=== PATIENT | female | born 1945 | race Caucasian/White ===

== ENCOUNTER 2024-07-08 11:31 | Outpatient (AMB) | payer MEDICARE, SELFPAY ==
[2024-07-08 11:32] VITALS: BP 108/68; BMI 23.7
--- NOTE | 2024-07-08 11:32 | A.OFFVIS_ITS ---
Vital Signs 07/08/24 11:32 Height 5 ft Weight 121 lb 4 oz BMI 23.7 BP 108/68 Blood Pressure Location Rt brachial Position Sitting Intake Visit Reasons: [employer]ULATION: Parkinson's 2nd opinion (06/23 LV) Intake Note: Patient presents for parkinsons 2nd opinion Allergies No Known Allergies Allergy (Verified 07/08/24 11:34) Medication List - Last Reconciled 07/08/24 by Tuyet Natarajan MD amlodipine 5 mg PO DAILY carbidopa-levodopa 25-100 mg 1 tab PO TID HPI Comments Details: 78y/o right handed female comes for second opinion regrading Parkinsons disease. She sees Wanda THOMSON at [facility] neurology/ she started with right leg stiffness few years ago and over 1 year ago she noticed intermittent right leg tremors. In the past few months she noticed her right hand dexterity was affected and had difficulty writing and was posturing. she was seen at [facility]rology few months ago and diagnosed with possible Parkinsons disease. she was unable to do STEPHANIE scan so was started on medications.she is on carbidopa/levodopa 25/100 tid . she noticed improvement with medications. Memory- occasional difficulty sleep- normal, vivid dreams when she took last dose of sinemet late at night Mood- ok Motivated - fatigued ( throat and tongue cancer in 2023 )she has loss of appetite Speech- softer Drooling-none Handwriting- hand exercises helped Showering, dressing- OK Good with turning in bed Gait- shuffles with right leg Bowel movements- constipation - smooth move tea or senna she has nausea since her chemo No double vision [facility] Medical History (Updated 07/08/24 @ 12:33 by Tuyet Natarajan MD) Parkinson's disease without dyskinesia or fluctuating manifestations Kyphosis Parkinson disease Pacemaker Squamous cell cancer of tongue Tremor of right hand Neuroforaminal stenosis of cervical spine Mild aortic stenosis HTN (hypertension) Hyperlipidemia Cervical cancer Human papilloma virus Surgical History History of Sarah fundoplication Family History Father Alcoholism CAD (coronary artery disease) Sister HTN (hypertension) Sister Hyperlipidemia Social History Patient Tobacco Use Status: Never used Tobacco Physical Exam Vital Signs: Last Vital Signs BP 108/68 07/08/24 11:32 BMI result Body Mass Index 23.7 Const General: cooperative, healthy appearing, comfortable and no acute distress Nutritional Appearance: average body habitus Orientation/consciousness: patient oriented x3 Neck Neck: Yes no meningeal signs Neuro Other: Right UE 2 + cog wheel rigidity Right LE rest tremors FFM - decreased R>L Foot taps - R>L Gait- stooped , decreased arm swing right UE, small steps General: patient oriented x3, moves all extremities, no meningeal signs and no focal motor deficits Cranial nerves: Yes Facial sensation intact/muscles of mastication intact, Yes Bilaterally intact EOM present, Yes Nystagmus not present, Yes Normal facial strength present and Yes Midline tongue present Cognition (Neuro): normal cognition Motor exam (neuro): 5/5 motor strength present throughout Deep tendon reflexes (DTR's): Right triceps reflex intensity grade: 1+, Left triceps reflex intensity grade: 1+, Rt Biceps (C5, C6): 1+, Left biceps reflex intensity grade: 1+, Right brachioradialis reflex intensity grade: 1+, Left brachioradialis reflex intensity grade: 1+, Right patellar reflex intensity grade: 1+ and Left patellar reflex intensity grade: 1+ Coordination: [id number] test normal Assessment & Plan Assessment & Plan (1) Parkinson's disease without dyskinesia or fluctuating manifestations: Code(s): G20.A1 - Parkinson's disease without dyskinesia, without mention of fluctuations Category: Medical Plan Sinemet 25/100 tid . discussed side effects Continue exercises at the [facility] . Increase protien intake. Info on APDA given Coding Level of Care Code New Pt Level 4 (34498) Complex EM visit Add On G2211 Diagnoses Parkinson's disease without dyskinesia or fluctuating manifestations G20.A1
--- OUTSIDE RECORDS SUMMARY | 2024-07-08 13:18 | XMS_ITS | Continuity of Care Document ---
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(Discharge Diagnosis) - 03/18/24 Adverse effect of carboplatin(Discharge Diagnosis) - 03/18/24 HPV (human papilloma virus) infection(Discharge Diagnosis) - 03/18/24 Discharge Disposition: A-D/C Home Attending Physician: Shanti PHOENIX, Jonathon Admitting Physician: Ignacia Land MD Referring Physician: Eugenio Wilson MD Encounter Type: Disch Recurring OP Allergies, Adverse Reactions, Alerts No Known Medication Allergies Immunizations Given and Recorded Vaccine Date Status Refusal Reason SARS-CoV-2(COVID-19)mRNA-LNP vac([id number]) 05/26/24 Recorded influenza virus vaccine, inactivated 04/08/24 Aron rded influenza virus vaccine, inactivated 04/06/23 Give n influenza virus vaccine, inactivated 04/29/22 Aron rded pneumococcal 20-valent conjugate vaccine 04/06/23 Given SARS-CoV-2 (COVID-19) mRNA-1273 vaccine 1 04/01/22 Recorded SARS-CoV-2 (COVID-19) mRNA-1273 vaccine 04/29/21 R ecorded SARS-CoV-2 (COVID-19) mRNA-1273 vaccine 11/21/20 R ecorded SARS-CoV-2 (COVID-19) mRNA-1273 vaccine 10/04/20 R ecorded SARS-CoV-2 (COVID-19) mRNA-1273 vaccine 09/24/20 G iven SARS-CoV-2 (COVID-19) mRNA-1273 vaccine 08/27/20 G iven pneumococcal 23-valent vaccine 2 07/14/17 Given pneumococcal 13-valent vaccine 05/06/16 Given 1Result Comment: bivalent booster left arm lot [id number] exp 12-01-2022 [facility] 2Result Comment: [07/14/2017] [id number] Medications amLODIPine 5 mg oral tablet 1 tablet, By Mouth, Daily, # 90 tablet, 0 Refills, Maintenance, 06/10/24 2:45:00 PM EST, [id number], 154.5, cm, 05/12/24 9:01:00 EST, Height, 57, kg, 05/12/24 9:01:00 EST, Dry Weight Start Date: 06/10/24 Status: Ordered Quantity: 90.0 Unit: tablet Repeat number: 1 carbidopa-levodopa 25 mg-100 mg oral tablet See Instructions, TAKE 0.5 (HALF) TABLET 3 TIMES A DAY BEFORE MEALS FOR 1 WEEK THEN INCREASE TO 1 FULL TAB, # 270 tablet, 0 Refills, Maintenance, 06/22/24 9:04:00 AM EST, [id number], 90, TAKE 0.5 (HALF) TABLET 3 TIMES A DAY BEFORE MEALS FOR 1 WEEK THEN INCREASE TO 1 FULL TAB, 154.5, cm, 06/14/24 10:54:00 EST, Height, 57, kg, 05/12/24 9:01:00 EST, Dry Weight Start Date: 06/22/24 Status: Ordered Quantity: 270.0 Unit: tablet Repeat number: 1 Nutritional Supplements Maintenance, 06/11/23 10:39:00 AM EST, Supply Start Date: 06/11/23 Status: Ordered Repeat number: 1 omeprazole 20 mg oral enteric coated capsule 1 capsule, By Mouth, Daily, # 90 capsule, 1 Refills, Maintenance, 12/14/23 7:59:00 AM EDT, [id number], 154.5, cm, 12/14/23 7:48:00 EDT, Height, 61.7, kg, 11/25/23 10:00:00 EDT, Dry Weight Start Date: 12/14/23 Stop Date: 12/14/23 Status: Ordered Quantity: 90.0 Unit: capsule Repeat number: 1 polyethylene glycol 3350 oral powder for reconstitution = 17 Gm, By Mouth, Daily, PRN Constipation, dissolve in water or juice before taking, # 527 Gm, 2 Refills, Maintenance, 08/27/23 1:24:00 PM EST, REC Powder, [id number], Partial fill upon patient request if the prescription is for a schedule II opioid drug., 17 Gm By Mouth Daily,PRN:Constipati on,Instr:dissolve in water or juice before taking, 154.5, cm, 08/26/23 8:24:00 EST, Height, 68, kg,08/26/23 8:24:00 EST, Dry Weight Start Date: 08/27/23 Status: Ordered Quantity: 527.0 Unit: g Repeat number: 3 Problem List Condition Confirmation Course Effective Dates Status H ealth Status Informant Adverse effect of carboplatin Confirmed Active Pacemaker - AV sequential paced 1 Confirmed Active History of G tube - removed 11/2023 Confirmed Active HPV (human papilloma virus) infection Confirmed Active Hyperlipidemia ASCVD 21% Confirmed Active Hypertension Confirmed Active Kyphosis Confirmed Active Mild aortic stenosis Confirmed Active Parkinsons disease Confirmed Active Cervical spinal stenosis Confirmed Active Squamous cell cancer of tongue 2, 3 Confirmed Active 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 Discharge Diagnosis 03/18/24 Non-Specified Adverse effect of carboplatin Discharge Diagnosis 03/18/24 HPV (human papilloma virus) infection Discharge Diagnosis 03/18/24 06:21 am Paolo Jiménez MD, Massiel Morfin Referred to neurosurgery Vital Signs Most recent to oldest [Reference Range]: 1 2 3 Height 154.5 cm (05/12/24: AM) 154.5 cm (04/22/24 AM) 154.5 cm (04/20/24: AM) Weight 57.0 kg (05/12/24: AM) 57.2 kg (04/22/24 AM) 59.2 kg (04/20/24 AM) Oxygen Saturation [94-100 %] 98 % (05/12/24: AM) 99 % (04/22/24 AM) 99 % (04/20/24: AM) Pulse Rate [55-90 bpm] 103 bpm *H* (05/12/24: AM) 94 bpm *H* (04/22/24 AM) 79 bpm (04/20/24: AM) Body Mass Index [18.5-24.99 kg/m2] 23.88 kg/m2 (05/12/24: AM) 23.96 kg/m2 (04/22/24 AM) 24.8 kg/m2 (04/20/24: AM) Blood Pressure [90-138/55-84 mm Hg] 116/62mm Hg (05/12/24: AM) 123/67mm Hg (04/22/24: AM) 127/65mm Hg (04/20/24:23 AM) Respiratory Rate [16-30 br/min] 16 br/min (08/31/23 8:58 AM) 18 br/min (08/24/23 8:45 AM) Temperature [96.8-100.4 DegF] 98.6 DegF (05/12/24: AM) 97.6 DegF (04/22/24 AM) 97.9 DegF (04/20/24: AM) Mode of Delivery (Oxygen) Room air (05/12/24 9:01 AM) Room air (04/22/24: AM) Room air (04/20/24:23 AM) Blood pressure sites Arm, right (11/7/24 9:01 AM) Arm, right (04/22/24 9:26 AM) Arm, right (04/20/24 10:23 AM) Temperature Route Oral (05/12/24 9:01 AM) Temporal (04/22/24 9:26 AM) Oral (04/20/24 10:23 AM) Dry Weight 57.0 kg (05/12/24 9:01 AM) 57.2 kg (04/22/24 9:26 AM) 59.2 kg (04/20/24 10:23 AM) Weight Obtained Via Standing scale (05/12/24 9:01 AM) Standing scale (04/22/24 9:26 AM) Standing scale (04/20/24 10:23 AM) Dry Weight Obtained Via Standing scale (05/12/24 9:01 AM) Standing scale (04/22/24 9:26 AM) Standing scale (04/20/24 10:23 AM) Social History Social History Type Response Smoking Status Never smoker entered on: 07/14/17 Sex Sex Representation Female (finding) Laboratory * Event Display: Non BH Lab Results Authored Date: [id number] Note * Franklin Sellers: PERFORM, SIGN, VERIFY Event Display: Patient Education/Instruction Authored Date: [id number] [facility] *Heme/Onc Adult Clinical Summary Name AMELIA AHN Age 78 Years 1945 PCP Sushil JOHNSON, Paula Franklin PCP Visit Date 05/12/2023 13:33:00 Additional Instructions: Scheduled Appointments?? Future Appointments ?*Device??Clinic ?Phone:??--?Fax:??-- ?Appt. Date:??12/29/2023?1:40 PM ?Scheduled Provider:??Device Interrogation Follow-Up Instructions ?? With: Address: When: Jonathon Moser [address] [place] [address] Cancer Care, [facility] [place] [address] Business (1) 12/10/2023 9:00 AM With: Address: When: Jonathon Moser [address] [place] [address] for Cancer Care, [facility] [place] [address] Business (1) 11/13/2023 10:00 AM Diagnosis Malignant neoplasm of tongue, unspecified; Dysphagia, unspecified Medications: Please continue your medications until treatment is completed or stopped by your provider. Discuss any questions related to medications with your provider. New Medications [id number], [address] [place], [place] [id number], [phone] Ondansetron (ondansetron 8 mg oral tablet) 1 tab(s) Oral every 8 hours as needed as needed for nausea/vomiting. Refills: 1. Next Dose: Medications to Continue with No Changes [id number], [address] [place], [place] [id number], [phone] Lidocaine Topical (Lidocaine Viscous 2% solution) 5 Milliliter Topically 3 times a day before mealsand bedtime as needed for mouth sore pain. Refills: 0. Next Dose: Lidocaine/Prilocaine Topical (lidocaine-prilocaine 2.5%-2.5% topical cream) apply small dollop to [facility] 1 hr prior to appt and cover with plastic. Refills: 1. Next Dose: Miscellaneous Rx (miracle mouth wash) Benadryl elixir 4 oz, nystatin susp (100,000 u/ml) 4 0z, lidocaine visc 2% 100mL, mylanta 8 oz 5-10 mL swish and spit every 2 hrs PRN mouth sores. Refills: 0. Next Dose: Nystatin (nystatin 413535 u/ml oral suspension) 5 Milliliter Oral 4 times a day. swish and swallow.Refills: 0. Next Dose: Polyethylene Glycol 3350 (polyethylene glycol 3350 oral powder for reconstitution) 17 gram Oral Daily as needed Constipation. dissolve in water or juice before taking. Refills: 2. Next Dose: - Durable Medical Equipment (Nutritional Supplements) Begin 6 cartons daily Isosource HN, + 240 ml free water 4 x daily via G-tube by gravity feed bag method. Pls provide all necessary G-tube supplies.Ht: 154.5 cm Wt: 68 kg ICD-10: C01 Base of tongue cancer; R13.13 Dysphagia; R63.4 Weight loss. Refills: 11. Next Dose: These medications were not printed or sent to your pharmacy Amlodipine (amLODIPine 5 mg oral tablet) 1 tab(s) Oral Daily. Refills: 3. Next Dose: Durable Medical Equipment (Nutritional Supplements) Next Dose: No Longer Take the Following Medications Omeprazole (omeprazole 20 mg oral enteric coated capsule) 1 capsule Oral Daily. Take on empty stomach and do not eat x 1 hour. Refills: 3. PROCHLORperazine (prochlorperazine 5 mg oral tablet) 1 tab(s) Oral every 6 hours as needed Nausea & Vomiting. may cause drowsiness. Refills: 0. Senna (Senna-Time 8.6 mg oral tablet) 1 tab(s) Oral Daily at Bedtime. Refills: 0. ValACYclovir (valACYclovir 500 mg oral tablet) 1 tab(s) Oral twice a day. Refills: 1. Allergy Info:?? No Known Medication Allergies Medications Given This Visit Medication Dose Route Dexamethasone (Dexamethasone Tablet) 12 mg By Mouth Ondansetron (Ondansetron ODTablet) 24 mg By Mouth CARBOplatin (CARBOplatin IVPB) 230 mg IVPB Dexamethasone (Dexamethasone Tablet) 12 mg By Mouth Ondansetron (Ondansetron ODTablet) 24 mg By Mouth CARBOplatin (CARBOplatin IVPB) 230 mg IVPB Dexamethasone (Dexamethasone Tablet) 12 mg By Mouth Ondansetron (Ondansetron ODTablet) 24 mg By Mouth CARBOplatin (CARBOplatin IVPB) 230 mg IVPB Dexamethasone (Dexamethasone Tablet) 12 mg By Mouth Ondansetron (Ondansetron ODTablet) 24 mg By Mouth CARBOplatin (CARBOplatin IVPB) 230 mg IVPB Dexamethasone (Dexamethasone Tablet) 12 mg By Mouth Ondansetron (Ondansetron ODTablet) 24 mg By Mouth CARBOplatin (CARBOplatin IVPB) 230 mg IVPB Dexamethasone (Dexamethasone Tablet) 12 mg By Mouth Ondansetron (Ondansetron ODTablet) 24 mg By Mouth CARBOplatin (CARBOplatin IVPB) 230 mg IVPB heparin flush (Heparin Flush 100 units/mL Inj) 500 units IV Push Slowly Future Orders ?No future orders Future Orders ?No future orders Vital Signs Height 154.5 cm Weight 61.5 kg BMI 25.76 kg/m2 Blood Pressure 146 mm Hg/77 mm Hg Temperature 97.6 DegF Pulse Rate 93 bpm Respiratory Rate 16 br/min 02 Sat Mode of Delivery 98 %/Room air You can now view a summary of your hospital visit from the comfort of your home through a free online portal called [employer]. [employer] is a website that allows you to securely view your medical information including discharge summary, medications and follow-up visits. ??You can alsosend a secure electronic message to your doctor???s office to request appointments, renew medications or just ask a question. You can enroll at [email or web address] or register during your next office visit. Disclaimer:?? The information provided is of a general nature and is intended to be used in conjunction with the recommendations and advice of your health care practitioner. ??Every effort has been made to ensure that the information provided is accurate and complete at the time it is provided to you however, as your needs change, or, as new ??information becomes available, different or additional instructions may be required. If you have questions, please consult with your primary care provider or pharmacist, as appropriate. ??This information is not intended to serve as substitution for assessment and evaluation by a qualified health care provider. If you do not have a primary care provider, you may find a [facility] provider by calling [facility] at [phone]. [facility], in keeping with [facility] guidance, no longer requires face masks for staff, patientsor visitors in most situations. Similar to time spent indoors at other locations, there is the chance that you were exposed to respiratory viruses during your time with us (such as flu or COVID-19).? If you develop symptoms concerning for a viral respiratory infection, please seek testing (and treatment if indicated) from your medical provider or home test kit. For information about the plan of care including goals and instructions for your diagnosis, please see the patient education orders section of this document. Patient Education Materials?? The content of this educational material or handout may have been modified, supplemented, or adapted from its original content and format to support your individualized medical care. * Franklin Sellers: PERFORM, SIGN, VERIFY Event Display: Patient Education/Instruction Authored Date: [id number] [facility] *Heme/Onc Adult Clinical Summary Name AMELIA AHN Age 78 Years 1945 PCP Sushil JOHNSON, Paula Franklin PCP Visit Date 05/12/2023 13:33:00 Additional Instructions: Scheduled Appointments?? Future Appointments ?*Device??Clinic ?Phone:??--?Fax:??-- ?Appt. Date:??12/29/2023?1:40 PM ?Scheduled Provider:??Device Interrogation Follow-Up Instructions ?? With: Address: When: Jonathon Moser [address] [place] [address] for Cancer Care, [facility] [place] [address] Business (1) 11/13/2023 10:00 AM Diagnosis Malignant neoplasm of tongue, unspecified; Dysphagia, unspecified Medications: Please continue your medications until treatment is completed or stopped by your provider. Discuss any questions related to medications with your provider. New Medications [id number], [address] [place], [place] [id number], [phone] Fluconazole (fluconazole 100 mg oral tablet) 1 tab(s) Oral Daily for 7 Days. Refills: 1. Next Dose: Omeprazole (omeprazole 20 mg oral enteric coated capsule) 1 capsule Oral Daily. Take on empty stomach and do not eat x 1 hour. Refills: 3. Next Dose: Oxycodone (oxyCODONE 5 mg oral tablet) 1.5 - 2 tablet Oral every 6 hours as needed as needed for pain. Increase dose to 1.5 tablets every 6 hours as needed. May increase to 2 tablets every 6 hours ifneeded to control pain.. Refills: 0. Next Dose: Senna (Senna-Time 8.6 mg oral tablet) 1 tab(s) Oral Daily at Bedtime. Refills: 0. Next Dose: ValACYclovir (valACYclovir 500 mg oral tablet) 1 tab(s) Oral twice a day. Refills: 1. Next Dose: Medications to Continue with No Changes [id number], [address], [place] [id number], [phone] Lidocaine Topical (Lidocaine Viscous 2% solution) 5 Milliliter Topically 3 times a day before mealsand bedtime as needed for mouth sore pain. Refills: 0. Next Dose: Lidocaine/Prilocaine Topical (lidocaine-prilocaine 2.5%-2.5% topical cream) apply small dollop to [facility] 1 hr prior to appt and cover with plastic. Refills: 1. Next Dose: Miscellaneous Rx (miracle mouth wash) Benadryl elixir 4 oz, nystatin susp (100,000 u/ml) 4 0z, lidocaine visc 2% 100mL, mylanta 8 oz 5-10 mL swish and spit every 2 hrs PRN mouth sores. Refills: 0. Next Dose: Nystatin (nystatin 211670 u/ml oral suspension) 5 Milliliter Oral 4 times a day. swish and swallow.Refills: 0. Next Dose: Polyethylene Glycol 3350 (polyethylene glycol 3350 oral powder for reconstitution) 17 gram Oral Daily as needed Constipation. dissolve in water or juice before taking. Refills: 2. Next Dose: - Durable Medical Equipment (Nutritional Supplements) Begin 6 cartons daily Isosource HN, + 240 ml free water 4 x daily via G-tube by gravity feed bag method. Pls provide all necessary G-tube supplies.Ht: 154.5 cm Wt: 68 kg ICD-10: C01 Base of tongue cancer; R13.13 Dysphagia; R63.4 Weight loss. Refills: 11. Next Dose: These medications were not printed or sent to your pharmacy Amlodipine (amLODIPine 5 mg oral tablet) 1 tab(s) Oral Daily. Refills: 3. Next Dose: Durable Medical Equipment (Nutritional Supplements) Next Dose: No Longer Take the Following Medications PROCHLORperazine (prochlorperazine 5 mg oral tablet) 1 tab(s) Oral every 6 hours as needed Nausea & Vomiting. may cause drowsiness. Refills: 0. Allergy Info:?? No Known Medication Allergies Medications Given This Visit Medication Dose Route Dexamethasone (Dexamethasone Tablet) 12 mg By Mouth Ondansetron (Ondansetron ODTablet) 24 mg By Mouth CARBOplatin (CARBOplatin IVPB) 230 mg IVPB Dexamethasone (Dexamethasone Tablet) 12 mg By Mouth Ondansetron (Ondansetron ODTablet) 24 mg By Mouth CARBOplatin (CARBOplatin IVPB) 230 mg IVPB Dexamethasone (Dexamethasone Tablet) 12 mg By Mouth Ondansetron (Ondansetron ODTablet) 24 mg By Mouth CARBOplatin (CARBOplatin IVPB) 230 mg IVPB Dexamethasone (Dexamethasone Tablet) 12 mg By Mouth Ondansetron (Ondansetron ODTablet) 24 mg By Mouth CARBOplatin (CARBOplatin IVPB) 230 mg IVPB Dexamethasone (Dexamethasone Tablet) 12 mg By Mouth Ondansetron (Ondansetron ODTablet) 24 mg By Mouth CARBOplatin (CARBOplatin IVPB) 230 mg IVPB Dexamethasone (Dexamethasone Tablet) 12 mg By Mouth Ondansetron (Ondansetron ODTablet) 24 mg By Mouth CARBOplatin (CARBOplatin IVPB) 230 mg IVPB heparin flush (Heparin Flush 100 units/mL Inj) 500 units IV Push Slowly Future Orders ?No future orders Future Orders ?No future orders Vital Signs Height 154.5 cm Weight 65.6 kg BMI 27.48 kg/m2 Blood Pressure 147 mm Hg/72 mm Hg Temperature 98.9 DegF Pulse Rate 89 bpm Respiratory Rate 16 br/min 02 Sat Mode of Delivery 95 %/Room air You can now view a summary of your hospital visit from the comfort of your home through a free online portal called [employer]. [employer] is a website that allows you to securely view your medical information including discharge summary, medications and follow-up visits. ??You can alsosend a secure electronic message to your doctor???s office to request appointments, renew medications or just ask a question. You can enroll at [email or web address] or register during your next office visit. Disclaimer:?? The information provided is of a general nature and is intended to be used in conjunction with the recommendations and advice of your health care practitioner. ??Every effort has been made to ensure that the information provided is accurate and complete at the time it is provided to you however, as your needs change, or, as new ??information becomes available, different or additional instructions may be required. If you have questions, please consult with your primary care provider or pharmacist, as appropriate. ??This information is not intended to serve as substitution for assessment and evaluation by a qualified health care provider. If you do not have a primary care provider, you may find a [facility] provider by calling [facility] at [phone]. [facility], in keeping with [facility] guidance, no longer requires face masks for staff, patientsor visitors in most situations. Similar to time spent indoors at other locations, there is the chance that you were exposed to respiratory viruses during your time with us (such as flu or COVID-19).? If you develop symptoms concerning for a viral respiratory infection, please seek testing (and treatment if indicated) from your medical provider or home test kit. For information about the plan of care including goals and instructions for your diagnosis, please see the patient education orders section of this document. Patient Education Materials?? The content of this educational material or handout may have been modified, supplemented, or adapted from its original content and format to support your individualized medical care. Patient Care team information Care Team Personnel Name: Massiel Jiménez MD Position: [facility] Physician - Primary Care Member Role: PCP Address: [facility] [place], [place] [address] Telecom: Name: Paula Arriola RN Position: [facility] Onco RN Member Role: Primary Care Nurse Name: Dav Chowdary RN Position: [facility] Onco RN Member Role: Primary Care Nurse Name: Ofe Sweet RN Position: [facility] Onco RN Member Role: Primary Care Nurse Name: Matt Burton MD, Enzo Acevedo Position: [facility] Physician - Oncology Med Service: Hematology & Oncology Address: [address] [place] [address] [place] [address]- Telecom: Care Team Related Persons Name: JORGE AHN Insurance Providers Guarantor name: AMELIA HAN Health Plan Information #: 2 Payer: [employer] Member Number: [id number] Policy Number: NA Group Number: NA Health Plan Information #: 1 Payer: MEDICARE PART B OUTPT Member Number: [id number] Policy Number: NA Group Number: NA
--- OUTSIDE RECORDS SUMMARY | 2024-07-08 13:18 | XMS_ITS | Continuity of Care Document ---
Author Organization [place] - [facility], [facility] Address [address] [place] [address] Care Team Providers Care Cinder Pit Crane Operator Name Role Phone MYLES ELLIS Primary Care Provider Assessment No assessment recorded. Plan of Treatment Reminders Order Date Submit Date Provider Last Modified By Organization Details Last Modified Time Details Appointments Establish ed 15 2024 11:45A M FORREST Ovalles MD Not available Not available Not available Lab None recorded. Referral None recorded. Procedures None recorded. Surgeries None recorded. Imaging None recorded. Medication Orders None recorded. Patient TargetsNo targets recorded. Patient InstructionsNo instructions recorded. Reason for Referral None Reported. Results Created Date Observation Date Name Description Value Unit Range Abnormal Flag Note LastModifiedBy Organization Detail LastModifiedTime 05/17/20 24 01/18/2024 PET, bone No observ ation record ed. [email or web address] Not Available 05/06 09:01:14 Result Notes None recorded. Problems Name Problem SNOMED Code Status Onset Date Resolution Date Notes Provider Name and Address Organization Details Recorded Time Malignant tumor of oropharyn x 801512660 Active 2022 Malignant neoplasm of oropharynx , unspecifie d; Note: Date Diagnosed: 05/11/2023 8:04 PM (C10.9) Not Available [facility] 02:31:45 Neoplasm of uncertain behavior of tongue 97852075 Active 2022 Neoplasm of uncertain behavior of tongue; Note: Changed from D37.0 to D37.02 (05/08/2023 4:56 PM) , Date Diagnosed: 04/28/2023 12:35 PM (D37.0) Not Available [facility] 4 02:31:37 History of malignant neoplasm of oral cavity 734313808 Active 2022 Personal history of malignant neoplasm of other sites of lip, oral cavity, and pharynx; Note: Date Diagnosed: 05/11/2023 8:04 PM (Z85.818) Not Available [facility] 4 02:31:49 Mass of neck 103739880 Active 2022 Localized swelling, mass and lump, neck; Note: Date Diagnosed: 04/28/2023 12:35 PM (R22.1) Not Available [facility] 4 02:31:32 Neck swelling 938601449 Active 2022 Localized swelling, mass and lump, neck; Note: Date Diagnosed: 04/28/2023 12:35 PM (R22.1) Not Available [facility] 4 02:31:32 Dysphagia 20778182 Active 2023 Dysphagia, unspecifie d; Note: Date Diagnosed: 10/13/2023 11:27 AM (R13.10) Not Available [facility] 4 02:31:36 Follow-up visit Active 2023 Encounter for follow-up examinatio n after completed treatment for malignant neoplasm; Note: Date Diagnosed: 10/13/2023 11:27 AM (Z08) Not Available [facility] 4 02:31:45 Taste sense altered 746175028 Active 2023 FORREST GRANT MD [address] [place], [place] [address], [address] , [place] [facility] 4 08:43:30 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 Procedures Surgical History Date Name Laterality Status Provider Name and Address Organization Details Recorded Time 05/17/2024 FFL_RE completed FORREST GRANT MD [address] [place], [place] [address], [address], [place] - [facility] 05/17/2024 08:40:20 01/12/2024 FFL_RE completed FORREST GRANT MD 100 [facility] [address], [place], [address], [place] [facility] 01/12/2024 12:10:25 Imaging Results None recorded. Procedure Notes None recorded. Medical Equipment None Reported. Medications Name Sig Start Date Stop Date Status Note LastModified by Organization Details LastModified Time amoxicillin 500 mg capsule TAKE 1 CAPSULE BY MOUTH THREE TIMES A DAY active Not Available Not Available Not Available fluconazole 100 mg tablet TAKE 2 TABLETS BY MOUTH TODAY AND THEN 1 TABLET DAILY UNTIL COMPLETED active Not Available Not Available No t Available nystatin 100,000 unit/mL oral suspension SWISH 5ML IN THE MOUTH 2 TIMES A DAY FOR 30 SECONDS AND SWALLOW active Not Available Not Available No t Available Lidocaine Viscous 2 % mucosal solution TAKE 5ML BY MOUTH 3 TIMES A DAY BEFORE MEALS AND AT BEDTIME NEEDED FOR MOUTH SORE PAIN active Not Available Not Available No t Available senna 8.6 mg tablet TAKE 1 TABLET BY MOUTH EVERYDAY AT BEDTIME active Not Available Not Available No t Available prochlorpera zine maleate 5 mg tablet TAKE 1 TABLET BY MOUTH EVERY 6 HOURS NEEDED FOR NAUSEA AND VOMITING active Not Available Not Available No t Available ondansetron HCl 8 mg tablet TAKE 1 TABLET BY MOUTH EVERY 8 HOURS NEEDED FOR NAUSEA/VOMI TING active Not Available Not Available No t Available fluconazole 200 mg tablet TAKE 2 TABLETS BY MOUTH ON DAY 1, THEN 1 TAB DAILY FOR 13 DAYS active Not Available Not Available Not Available meloxicam 15 mg tablet TAKE 1 TABLET BY MOUTH ONCE A DAY WITH FOOD OR MILK active Not Available Not Available No t Available amlodipine 5 mg tablet TAKE 1 TABLET BY MOUTH EVERY DAY active Not Available Not Available No t Available valacyclovir 500 mg tablet TAKE 1 TABLET BY MOUTH TWICE A DAY active Not Available Not Available No t Available olanzapine 2.5 mg tablet TAKE 1 TABLET BY MOUTH EVERYDAY AT BEDTIME active Not Available Not Available No t Available acetaminophe n 500 mg tablet TAKE 1 TABLET EVERY 6 HOURS NEEDED FOR PAIN active Not Available Not Available No t Available lidocaine-pr ilocaine 2.5 %-2.5 % topical cream APPLY SMALL DOLLOP TO PORTACAT SITE 1 HR PRIOR TO APPT AND COVER WITH PLASTIC active Not Available Not Available No t Available lorazepam 0.5 mg tablet TAKE 0.5 TABLET BY MOUTH ONCE NEEDED FOR ANXIETY, TAKE 30-60 MIN PRIOR TO NUCLEAR TESTING. active Not Available Not Available No t Available metocloprami de 5 mg tablet TAKE 1 TABLET BY MOUTH 3 TIMES A DAY 1 HOUR BEFORE G-TUBE FEEDING STOP PROCHLORPER AZINE WHILE ON MED active Not Available Not Available No t Available cephalexin 500 mg capsule TAKE 1 CAPSULE BY MOUTH 3 TIMES A DAY FOR 7 DAYS active Not Available Not Available N ot Available omeprazole 20 mg capsule,yoselyn yed release TAKE 1 CAPSULE BY MOUTH EVERY DAY ON EMPTY STOMACH AND DO NOT EAT FOR 1 HOUR active Not Available Not Available N ot Available carbidopa 25 mg-levodopa 100 mg tablet TAKE 0.5 (HALF) TABLET 3 TIMES A DAY BEFORE MEALS FOR 1 WEEK THEN INCREASE TO 1 FULL TAB active Not Available Not Available N ot Available oxycodone 5 mg tablet TAKE 1 AND 1/2 TO 2 TABLETS BY MOUTH EVERY 6 HOURS NEEDED FOR PAIN active Not Available Not Available No t Available mirtazapine 7.5 mg tablet PLEASE SEE ATTACHED FOR DETAILED DIRECTIONS active Not Available Not Available N ot Available rasagiline 0.5 mg tablet active Not Available Not Available Not Available Vitals None Recorded Social History None recorded. Functional Status None recorded. Mental Status None recorded. Family History Nothing Reported. Medical History No medical history recorded. Gynecological HistoryNo gynecological history recorded. 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 035742058 K11.7 Taste sense altered 2718 65495 R43.2 Health Concerns Section Related Observation LastModified by Organization Detai ls LastModified Time None Recorded Concern Status LastModified by Organization Details LastModified Time None Recorded Payers Encounter Date Sequence Insurance Name Policy Number Policy Reynaga Covered Member ID Reynaga Member ID Guarantor Name 05/17/2024 2 [place] [id number] Catia Perez [id number] Catia Perez 05/17/2024 1 [place] [employer] SERVICES Catia Perez [id number] Catia Perez Notes Date Note Type Note Provider Name and Address Organization Details Recorded Time 05/17/2024 text/html 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 Post tx PET 01/2024 without residual disease. Her swallowing has improved. No pain. Supplementing calorie intake with Boost. Dr. Land checks thyroid hormone levels. No SOB. She was diagnosed with Parkinsons. FORREST GRANT MD [address] [place] [address], [phone] [place] [facility] 05/17/2024 08:50:03 OBGyn Episode No OBEpisode recorded.
--- OUTSIDE RECORDS SUMMARY | 2024-07-08 13:18 | XMS_ITS | Data Portability ---
Author Organization [place] - [facility], All[facility] Address [address] [address] Care Team Providers Care Wind Energy Mechanic Name Role Phone MYLES ELLIS Primary Care Provider [phone] Assessment No assessment recorded. Plan of Treatment [...] Abnormal Flag Note LastModifiedBy Organization Detail LastModifiedTime 02/24/2004/15/2023 imagi ng/di agnos tic resul t No observ ation record ed. [email or web address] Not Available 00:46:31 02/24/2004/29/2023 imagi ng/di agnos tic resul t No observ ation record ed. [email or web address] Not Available 00:47:07 02/24/20 24 05/05/2023 imagi ng/di agnos tic resul t No observ ation record ed. [email or web address] Not Available 00:47:16 02/24/20 24 05/11/2023 imagi ng/di agnos tic resul t No observ ation record ed. [email or web address] Not Available 00:47:33 02/24/20 24 06/01/2023 imagi ng/di agnos tic resul t No observ ation record ed. [email or web address] Not Available 00:47:45 05/17/2001/18/2024 PET, bone No observ ation record ed. [email or web address] Not Available 05/06 09:01:14 Result Notes None recorded. Problems Name Problem SNOMED Code Status Onset Date Resolution Date Notes Provider Name and Address Organization Details Recorded Time Malignant tumor of oropharyn x 220468695 Active 2022 Malignant neoplasm of oropharynx , unspecifie d; Note: Date Diagnosed: 05/11/2023 8:04 PM (C10.9) Not Available [facility] 4 02:31:45 Neoplasm of uncertain behavior of tongue 33676075 Active 2022 Neoplasm of uncertain behavior of tongue; Note: Changed from D37.0 to D37.02 (05/08/2023 4:56 PM) , Date Diagnosed: 04/28/2023 12:35 PM (D37.0) Not Available [facility] 4 02:31:37 History of malignant neoplasm of oral cavity 869180077 Active 2022 Personal history of malignant neoplasm of other sites of lip, oral cavity, and pharynx; Note: Date Diagnosed: 05/11/2023 8:04 PM (Z85.818) Not Available [facility] 4 02:31:49 Mass of neck 426019496 Active 2022 Localized swelling, mass and lump, neck; Note: Date Diagnosed: 04/28/2023 12:35 PM (R22.1) Not Available [facility] 4 02:31:32 Neck swelling 093505165 Active 2022 Localized swelling, mass and lump, neck; Note: Date Diagnosed: 04/28/2023 12:35 PM (R22.1) Not Available [facility] 4 02:31:32 Dysphagia 81496655 Active 2023 Dysphagia, unspecifie d; Note: Date Diagnosed: 10/13/2023 11:27 AM (R13.10) Not Available [facility] 4 02:31:36 Follow-up visit Active 2023 Encounter for follow-up examkevin n after completed treatment for malignant neoplasm; Note: Date Diagnosed: 10/13/2023 11:27 AM (Z08) Not Available [facility] 02:31:45 Taste sense altered 666680492 Active 2023 FORREST GRANT MD 100 [facility],[place] [address], [place], [address] , [place] - [facility] 4 08:43:30 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 Procedures Surgical History Date Name Laterality Status Provider Name and Address Organization Details Recorded Time 05/17/2024 FFL_RE completed FORREST GRANT MD [address] [place] [address],[place] [address], [place], [address], [facility] - [facility] 05/17/2024 08:40:20 01/12/2024 FFL_RE completed FORREST GRANT MD [address] [place] [address],[place] [address], [place], [address], [facility] - [facility] 01/12/2024 12:10:25 Imaging Results Imaging Date Name Status LastModified by Organiz ation Details LastModified Time 04/15/2023 imaging/diag nostic result completed Information not available 02/24/2024 00:46:31 04/29/2023 imaging/diag nostic result completed Information not available 02/24/2024 00:47:07 05/05/2023 imaging/diag nostic result completed Information not available 02/24/2024 00:47:16 05/11/2023 imaging/diag nostic result completed Information not available 02/24/2024 00:47:33 06/01/2023 imaging/diag nostic result completed Information not available 02/24/2024 00:47:45 01/18/2024 PET, bone completed [email or web address] Information n ot available 05/17/2024 09:01:14 Procedure Notes None recorded. Medical Equipment None [...] % topical cream APPLY SMALL DOLLOP TO [facility] SITE 1 HR PRIOR TO APPT AND [...] Not Available Not Available Not Available Vitals Date Recorded Body height Body mass index (BMI) Body weight Provider Name and Address Organization Details Last Updated DateTime 01/12/2024 154.94 cm 24.6 kg/m2 73382.01 g Patito aLzo [place] - [facility] 01/12/2024 11:43:56 Social History None recorded. Functional Status None recorded. Mental Status None recorded. Family History Nothing Reported. Medical History No medical history recorded. Gynecological HistoryNo gynecological history recorded. Obstetrics History GPAL:G 0 P 0 0 0 0 Past Encounters Encounter ID Performer Location Encounter Start Date Encounter Closed Date Diagnosis/Indication Diagnosis SNOMED-CT Code Diagnosis ICD10 Code [id number] FORREST GRANT MD [facility] [address] [address] 01/12/2024 11:27:58 01/12/2024 12:25:53 History of malignant neoplasm of oropharynx 1625620099 9777771 Z85.818 Screening for malignant neoplasm of respiratory tract 458671675 Z12.2 [id number] FORREST GRANT MD [facility] [address] [address] 05/17/2024 08:20:39 05/17/2024 11:53:03 History of malignant neoplasm of oropharynx 7088386325 4486596 Z85.818 Screening for malignant neoplasm of respiratory tract 787409100 Z12.2 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 261913889 K11.7 Taste sense altered 2718 91564 R43.2 Health Concerns Section Related Observation LastModified by Organization Detai ls LastModified Time None Recorded Concern Status LastModified by Organization Details LastModified Time None Recorded Advance Directives Directive None Recorded Payers Encounter Date Sequence Insurance Name Policy Number Policy Reynaga Covered Member ID Reynaga Member ID Guarantor Name 01/12/2024 1 [place]: [facility] [employer] SERVICES Catia A Ana [id number] Catia Ana 05/17/2024 2 [place] [id number] Catia Lucero Ana [id number] Catia Ana 05/17/2024 1 [place] [employer] [facility] SERVICES Catia A Ana [id number] Catia Burnside Notes Date Note Type Note Provider Name and Address Organization Details Recorded Time 01/12/2024 text/html 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 Her swallowing has improved. Has a PET Thursday. Has low energy. Has had her thyroid hormone level checked. 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 Post tx PET 01/2024 without residual disease. Her swallowing has improved. No pain. Supplementing calorie intake with Boost. Dr. Land checks thyroid hormone levels. No SOB. She was diagnosed with Parkinsons. FORREST GRANT MD [address] [place] [address], [address], [facility] - [facility] 05/17/2024 08:50:03 OBGyn Episode No OBEpisode recorded.
--- OUTSIDE RECORDS SUMMARY | 2024-07-08 13:18 | XMS_ITS | Continuity of Care Document ---
Author Organization [facility] Address [address] [place] [address]- Care Team Providers Care Binder Layer Name Role Phone Tino PHOENIX, Massiel Morfin Primary Care Physician [phone] Encounter [facility] Date(s): 04/18/24 - 06/28/[address] [address]- Encounter Diagnosis Other symptoms and signs involving the musculoskeletal system(Final) - Discharge Disposition: A-D/C Home Attending Physician: Wanda Lopez NP Admitting Physician: Wanda Lopez NP Referring Physician: Wanda Lopez NP Encounter Type: Disch Recurring OP Allergies, Adverse Reactions, Alerts No Known Medication Allergies Immunizations Given and Recorded Vaccine Date Status Refusal Reason SARS-CoV-2(COVID-19)mRNA-LNP vac([id number]) 05/26/24 Recorded influenza virus vaccine, inactivated 04/08/24 [...] 1Result Comment: bivalent booster left arm lot [id number] exp [facility]01-2022 [facility] Comment: [07/14/2017] [id number] Medications amLODIPine 5 mg oral tablet 1 tablet, By Mouth, Daily, # 90 tablet, 0 Refills, Maintenance, 06/10/24 2:45:00 PM EST, [facility], 154.5, cm, 05/12/24 9:01:00 EST, Height, 57, kg, 05/12/24 9:01:00 EST, Dry Weight Start Date: 06/10/24 Status: Ordered Quantity: 90.0 Unit: tablet Repeat number: 1 carbidopa-levodopa 25 mg-100 mg oral tablet See Instructions, TAKE 0.5 (HALF) TABLET 3 TIMES A DAY BEFORE MEALS FOR 1 WEEK THEN INCREASE TO 1 FULL TAB, # 270 tablet, 0 Refills, Maintenance, 06/22/24 9:04:00 AM EST, [facility], 90, TAKE 0.5 (HALF) TABLET 3 TIMES [...] 1 Refills, Maintenance, 12/14/23 7:59:00 AM EDT, [id number], 154.5, cm, 12/14/23 7:48:00 EDT, Height, 61.7, [...] with radiation with weekly carboplatin on 09/18/2023. Social History Social History Type Response Smoking Status Never smoker entered on: 07/14/17 Sex Sex Representation Female (finding) Patient Care team information Care Team Personnel Name: Massiel Jiménez MD Position: [facility] Physician - Primary Care Member Role: PCP Address: [facility] [place] [phone]- Telecom: Name: Paula Arriola RN Position: [facility] Onco RN Member Role: Primary Care Nurse Name: Dav Chowdary RN Position: [facility] Onco RN Member Role: Primary Care Nurse Name: Ofe Sweet RN Position: [facility] Onco RN Member Role: Primary Care Nurse Care Team Related Persons Name: JORGE AHN Insurance Providers Guarantor name: AMELIA AHN [employer] Plan Information #: 2 Payer: MEDEX Member Number: [id number] Policy Number: NA Group Number: NA Health Plan Information #: 1 Payer: MEDICARE PART B OUTPT Member Number: [id number] Policy Number: NA Group Number: NA
== END 2024-07-08 12:35 | disposition home or self-care (01) ==
PROVIDERS: PCP Internal Medicine; Visit Provider Psychiatry & Neurology Neurology
DX: G20.A1 Parkinson's disease without dyskinesia, without mention of fluctuations (principal)
CPT/HCPCS: 99204; G2211

== ENCOUNTER → 2024-07-08 11:31 | Outpatient (BNVA) | payer MEDICARE, SELFPAY | PROVIDERS: PCP Internal Medicine; Visit Provider Psychiatry & Neurology Neurology | DX: G20.A1 Parkinson's disease without dyskinesia, without mention of fluctuations (principal) | CPT/HCPCS: 99202 ==

== ENCOUNTER 2024-12-28 14:25 | Outpatient (AMB) | payer MEDICARE, SELFPAY ==
--- NOTE | 2024-12-28 14:28 | A.OFFVIS_ITS ---
Vital Signs 12/28/24 14:29 Height 5 ft Weight 117 lb BMI 22.8 BP 122/78 Blood Pressure Location Rt brachial Position Sitting Intake Visit Reasons: Follow Up-3mo Intake Note: Patient presents for follow up parkinson disease Allergies No Known Allergies Allergy (Verified 12/28/24 14:30) HPI Comments Details: 79y/o right handed female comes for follow up of Parkinsons disease.she is doing well with sinemet 25/100 tid she exercises regularly she has more trouble swallowing - has an appointment with ENT. she has mild right leg stiffness. History from last visit- she started with right leg stiffness few years ago and over 1 year ago she noticed intermittent right leg tremors. In the past few months she noticed her right hand dexterity was affected and had difficulty writing and was posturing. she was seen at [facility] few months ago and diagnosed with possible Parkinsons disease. she was unable to do STEPHANIE scan so was started on medications.she is on carbidopa/levodopa 25/100 tid . she noticed improvement with medications. Memory- occasional difficulty sleep- normal, vivid dreams when she took last dose of sinemet late at night Mood- ok Motivated - fatigued ( throat and tongue cancer in 2023 )she has loss of appetite Speech- softer Drooling-none Handwriting- hand exercises helped Showering, dressing- OK Good with turning in bed Gait- shuffles with right leg Bowel movements- constipation - smooth move tea or senna she has nausea since her chemo No double vision PFSH Medical History Parkinson's disease without dyskinesia or fluctuating manifestations Kyphosis Parkinson disease Pacemaker Squamous cell cancer of tongue Tremor of right hand Neuroforaminal stenosis of cervical spine Mild aortic stenosis HTN (hypertension) Hyperlipidemia Cervical cancer Human papilloma virus Surgical History History of Sarah fundoplication Family History Father Alcoholism CAD (coronary artery disease) Sister HTN (hypertension) Sister Hyperlipidemia Social History Patient Tobacco Use Status: Never used Tobacco Physical Exam Vital Signs: Last Vital Signs BP 122/78 12/28/24 14:29 BMI result Body Mass Index 22.8 Const General: cooperative, healthy appearing, comfortable and no acute distress Nutritional Appearance: average body habitus Orientation/consciousness: patient oriented x3 Neck Neck: Yes no meningeal signs Neuro Other: Right UE 2 + cog wheel rigidity Right LE rest tremors FFM - decreased R>L Foot taps - R>L Gait- stooped , decreased arm swing right UE, small steps General: patient oriented x3, moves all extremities, no meningeal signs and no focal motor deficits Cranial nerves: Yes Facial sensation intact/muscles of mastication intact, Yes Bilaterally intact EOM present, Yes Nystagmus not present, Yes Normal facial strength present and Yes Midline tongue present Cognition (Neuro): normal cognition Motor exam (neuro): 5/5 motor strength present throughout Coordination: [id number] test normal Assessment & Plan Assessment & Plan (1) Parkinson's disease without dyskinesia or fluctuating manifestations: Code(s): G20.A1 - Parkinson's disease without dyskinesia, without mention of fluctuations Category: Medical Plan Sinemet 25/100 tid . discussed side effects Continue exercises at the [facility] . Increase protien intake. Coding Level of Care Code Est Pt Level 4 (28603) Complex EM visit Add On G2211 Diagnoses Parkinson's disease without dyskinesia or fluctuating manifestations G20.A1
[2024-12-28 14:29] VITALS: BP 122/78; BMI 22.8
--- OUTSIDE RECORDS SUMMARY | 2024-12-28 17:11 | XMS_ITS | Data Portability ---
Author Organization [place] - [facility], Allergy Address [address] [address] Care Team Providers Care Gettering Operator Name Role Phone MYLES ELLIS Primary Care Provider Assessment No assessment recorded. Plan of Treatment Reminders Order Date Submit Date Provider Last Modified By Organization Details Last Modified Time Details Appointments Establish ed 30 2024 03:00P M FORREST Ovalles MD Not available Not [...] ation record ed. [email or web address] Not Available 00:46:31 02/24/20 24 04/29/2023 imagi ng/di agnos tic resul t No observ ation record ed. [email or web address] Not Available 00:47:07 02/24/2005/05/2023 imagi ng/di agnos tic resul t No observ ation record ed. [email or web address] Not Available 00:47:16 02/24/20 24 05/11/2023 imagi ng/di agnos tic resul t No observ ation record ed. [email or web address] Not Available 00:47:33 08/21/06/01/2023 imagi ng/di agnos tic resul t No observ ation record ed. [email or web address] Not Available 00:47:45 05/17/2001/18/2024 PET, bone No observ ation record ed. [email or web address] Not Available 05/06 09:01:14 Result Notes None recorded. 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 , unspecifie d; Note: Date Diagnosed: 05/11/2023 8:04 PM (C10.9) Not Available [facility] 4 02:31:45 Neoplasm of uncertain behavior of tongue 20346248 Active 2022 Neoplasm of uncertain behavior of tongue; Note: Changed from D37.0 to D37.02 (05/08/2023 4:56 PM) , Date Diagnosed: 04/28/2023 12:35 PM (D37.0) Not Available [facility] 4 02:31:37 History of malignant neoplasm of oral cavity 604423341 Active 2022 Personal history of malignant neoplasm of other sites of lip, oral cavity, and pharynx; Note: Date Diagnosed: 05/11/2023 8:04 PM (Z85.818) Not Available [facility] 4 02:31:49 Mass of neck 923216745 Active 2022 Localized swelling, mass and lump, neck; Note: Date Diagnosed: 04/28/2023 12:35 PM (R22.1) Not Available [facility] 4 02:31:32 Neck swelling 110916470 Active 2022 Localized swelling, mass and lump, neck; Note: Date Diagnosed: 04/28/2023 12:35 PM (R22.1) Not Available [facility] 4 02:31:32 Dysphagia 94856805 Active 2023 Dysphagia, unspecifie d; Note: Date Diagnosed: 10/13/2023 11:27 AM (R13.10) Not Available [facility] 4 02:31:36 Follow-up visit Active 2023 Encounter for follow-up examinatio n after completed treatment for malignant neoplasm; Note: Date Diagnosed: 10/13/2023 11:27 AM (Z08) Not Available [facility] 4 02:31:45 Taste sense altered 818161644 Active 2023 FORREST GRANT MD [address] [facility],[place] [address], [facility] [place], [address] , [place] [facility] 4 08:43:30 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 Procedures Surgical History Date Name Laterality Status Provider Name and Address Organization Details Recorded Time 08/31/2024 FFL_RE completed FORREST GRANT MD [address] [place] [address],[place] [address], [place], [address], [facility] - [facility] 08/31/2024 12:02:00 05/17/2024 FFL_RE completed FORREST GRANT MD [address] [place] [address],[address], [address], [facility] - [facility] 05/17/2024 08:40:20 01/12/2024 FFL_RE completed FORREST GRANT MD [address] [place] [address],[address], [address], [facility] - [facility] 01/12/2024 12:10:25 Imaging Results None recorded. Procedure [...] % topical cream APPLY SMALL DOLLOP TO [facility] SITE 1 HR PRIOR TO APPT AND [...] and Address Organization Details Last Updated DateTime 08/31/2024 154.94 cm 22.7 kg/m2 05778.08 martinez [facility] 08/31/2024 11:58:06 Date Recorded Body height Body mass index (BMI) Body weight Provider Name and Address Organization Details Last Updated DateTime 01/12/2024 154.94 cm 24.6 kg/m2 59631.01 [facility] 01/12/2024 11:43:56 Social History None recorded. Functional Status None recorded. Mental Status None recorded. Family History Nothing Reported. Medical History No medical history recorded. Gynecological HistoryNo gynecological history recorded. Obstetrics History GPAL:G 0 P 0 0 0 0 Past Encounters Encounter ID Performer Location Encounter Start Date Encounter Closed Date Diagnosis/Indication Diagnosis SNOMED-CT Code Diagnosis ICD10 Code Diagnosis Note [id number] FORREST GRANT MD [facility] [address] [address] 01/12/2024 11:27:58 01/12/2024 12:25:53 History of malignant neoplasm of oropharynx 0645783712 2954201 Z85.818 Exam and Laryngosco py showed no evidence of disease. We will continue routine surveillan ce. Discussed voice therapy but she deferred for now. Screening for malignant neoplasm of respiratory tract 236635915 Z12.2 Exam and Laryngosco py showed no evidence of disease. We will continue routine surveillan ce. [id number] FORREST GRANT MD [facility] [address] [address] 05/17/2024 08:20:39 05/17/2024 11:53:03 History of malignant neoplasm of oropharynx 8854444166 5961419 Z85.818 Exam and Laryngosco py showed no evidence of disease. We will continue routine surveillan ce. Discussed voice therapy but she deferred for now. Screening for malignant neoplasm of respiratory tract 398928559 Z12.2 Exam and Laryngosco py showed no evidence of disease. We will continue routine surveillan ce. 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 Encouraged hydration. Taste sense altered 2718 26904 R43.2 Gave reasurance I expect some additional improvemen t over time. [id number] FORREST GRANT MD [facility] [address] [place] [address] 08/31/2024 11:41:40 08/31/2024 12:08:22 History of malignant neoplasm of oropharynx 4484042360 5302429 Z85.818 Exam and Laryngosco py showed no evidence of disease. We will continue routine surveillan ce. Discussed voice therapy but she deferred for now. Screening for malignant neoplasm of respiratory tract 519729560 Z12.2 Exam and Laryngosco py showed no evidence of disease. We will continue routine surveillan ce. I gave reassuranc e what she was feeling in her neck was her right submandibu lar gland which felt normal and fairly symmetric. 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 Encouraged hydration. Taste sense altered 2718 76723 R43.2 Gave reassuranc e I expect some additional improvemen t over time. Health Concerns Section Related Observation LastModified by Organization Detai ls LastModified Time None Recorded Concern Status LastModified by Organization Details LastModified Time None Recorded Advance Directives Directive None Recorded Payers Insurance Date Sequence Insurance Name Policy Number Policy Reynaga Covered Member ID Reynaga Member ID Guarantor Name 08/31/2024 2 [id number] Catia Perez 08/31/2024 2 [place] [id number] Catia Perez [id number] Catia Perez 08/31/2024 1 [place] 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 Her swallowing has improved. Has a PET Thursday. Has low energy. Has had her thyroid hormone level checked. 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 Post tx PET 01/2024 without residual disease. Her swallowing has improved. No pain. Supplementing calorie intake with Boost. Dr. Land checks thyroid hormone levels. No SOB. She was diagnosed with Parkinsons. 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 Post tx PET 01/2024 without residual disease. Her swallowing has improved. She coughs very occasionally with swallowing. No pain. Dr. Land checks thyroid hormone levels. She was diagnosed with Parkinsons. She noted a swollen gland in her right neck and she's not sure if it's new or not. FORREST GRANT MD [address] [facility],[address], [address], [place] - [facility] 08/31/2024 12:09:21 OBGyn Episode No OBEpisode recorded.
== END 2024-12-28 14:53 | disposition home or self-care (01) ==
LOC: HO.HSMS 14:25
PROVIDERS: PCP Internal Medicine; Visit Provider Psychiatry & Neurology Neurology
DX: G20.A1 Parkinson's disease without dyskinesia, without mention of fluctuations (principal)
CPT/HCPCS: 99214; G2211

== ENCOUNTER → 2024-12-28 14:25 | Outpatient (BNVA) | payer MEDICARE, SELFPAY | PROVIDERS: PCP Internal Medicine; Visit Provider Psychiatry & Neurology Neurology | DX: G20.A1 Parkinson's disease without dyskinesia, without mention of fluctuations (principal) | CPT/HCPCS: 99212 ==

== ENCOUNTER 2025-04-07 12:55 | Outpatient (AMB) | payer MEDICARE, SELFPAY ==
--- NOTE | 2025-04-07 12:58 | MHC.OFFVIS ---
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 she is concerned about her low energy levels. she was started on olanzepine 2.5mg qhs prescrobed by Dr.Helena Jiménez she exercises regularly she was evaluated by ENT for dysphagia and was told she was OK she has mild right leg stiffness. History from last visit- she started with right leg stiffness few years ago and over 1 year ago she noticed intermittent right leg tremors. In the past few months she noticed her right hand dexterity was affected and had difficulty writing and was posturing. she was seen at [facility] few months ago and diagnosed with possible Parkinsons disease. she was unable to do STEPHANIE scan so was started on medications.she is on carbidopa/levodopa 25/100 tid . she noticed improvement with medications. Memory- occasional difficulty sleep- normal, vivid dreams when she took last dose of sinemet late at night Mood- ok Motivated - fatigued ( throat and tongue cancer in 2023 )she has loss of appetite Speech- softer Drooling-none Handwriting- hand exercises helped Showering, dressing- OK Good with turning in bed Gait- shuffles with right leg Bowel movements- constipation - smooth move tea or senna she has nausea since her chemo No double vision [facility] Medical History Parkinson's disease without dyskinesia or fluctuating manifestations Kyphosis Parkinson disease Pacemaker Squamous cell cancer of tongue Tremor of right hand Neuroforaminal stenosis of cervical spine Mild aortic stenosis HTN (hypertension) Hyperlipidemia Cervical cancer Human papilloma virus Surgical History History of Sarah fundoplication Family History Father Alcoholism CAD (coronary artery disease) Sister HTN (hypertension) Sister Hyperlipidemia Social History Patient Tobacco Use Status: Never used Tobacco Physical Exam Vital Signs: Last Vital Signs Pulse 82 04/07/25 13:01 BP 118/74 04/07/25 13:01 Pulse Ox 97 04/07/25 13:01 Oxygen Delivery Method Room Air 04/07/25 13:01 BMI result Body Mass Index 22.9 Const General: cooperative, healthy appearing, comfortable and no acute distress Nutritional Appearance: average body habitus Orientation/consciousness: patient oriented x3 Neck Neck: Yes no meningeal signs Neuro Other: Right UE 2 + cog wheel rigidity Right LE rest tremors FFM - decreased R>L Foot taps - R>L Gait- stooped , decreased arm swing right UE, small steps General: patient oriented x3, moves all extremities, no meningeal signs and no focal motor deficits Cranial nerves: Yes Facial sensation intact/muscles of mastication intact, Yes Bilaterally intact EOM present, Yes Nystagmus not present, Yes Normal facial strength present and Yes Midline tongue present Cognition (Neuro): normal cognition Motor exam (neuro): 5/5 motor strength present throughout Coordination: gunbam-ky-qule test normal Assessment & Plan Assessment & Plan (1) Parkinson's disease without dyskinesia or fluctuating manifestations: Code(s): G20.A1 - Parkinson's disease without dyskinesia, without mention of fluctuations Category: Medical Plan Sinemet 25/100 tid . discussed side effects Mirtazepine 15 mg qhs Continue exercises at the [facility] . Increase protien intake. Coding Level of Care Code Est Pt Level 4 (66122) Complex EM visit Add On G2211 Diagnoses Parkinson's disease without dyskinesia or fluctuating manifestations G20.A1
[2025-04-07 13:01] VITALS: BP 118/74; PULSE 82; O2SAT 97; BMI 22.9
--- OUTSIDE RECORDS SUMMARY | 2025-04-07 13:20 | XMS_ITS | Data Portability ---
Author Organization [place] [facility], Allergy Address [address] [address] Care Team Providers Care Air Conditioning Service Technician Name Role Phone MYLES ELLIS Primary Care Provider Assessment No assessment recorded. Plan of Treatment Reminders Order Date Submit Date Provider Last Modified By Organization Details Last Modified Time Details Appointments Establish ed 15 2024 08:15A M FORREST Ovalles MD Not available Not [...] PET, bone No observ ation record ed. [email or web address] Not Available 05/06 09:01:14 Result Notes None recorded. 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; Note: Changed from D37.0 to D37.02 (05/08/2023 4:56 PM) , Date Diagnosed: 04/28/2023 12:35 PM (D37.0) Not Available [facility] 4 02:31:37 Mass of neck 951031432 Active 2022 Localized swelling, mass and lump, neck; Note: Date Diagnosed: 04/28/2023 12:35 PM (R22.1) Not Available [facility] 4 02:31:32 Neck swelling 388283377 Active 2022 Localized swelling, mass and lump, neck; Note: Date Diagnosed: 04/28/2023 12:35 PM (R22.1) Not Available [facility] 4 02:31:32 Malignant neoplasm of oropharyn x 946903114 Active 2022 Malignant neoplasm of oropharynx , unspecifie d; Note: Date Diagnosed: 05/11/2023 8:04 PM (C10.9) Not Available [facility] 4 02:31:45 History of malignant neoplasm of oral cavity 690459977 Active 2022 Personal history of malignant neoplasm of other sites of lip, oral cavity, and pharynx; Note: Date Diagnosed: 05/11/2023 8:04 PM (Z85.818) Not Available [facility] 4 02:31:49 Dysphagia 07256527 Active 2023 Dysphagia, unspecifie d; Note: Date Diagnosed: 10/13/2023 11:27 AM (R13.10) Not Available [facility] 4 02:31:36 Follow-up visit Active 2023 Encounter for follow-up examinatio n after completed treatment for malignant neoplasm; Note: Date Diagnosed: 10/13/2023 11:27 AM (Z08) Not Available [facility] 4 02:31:45 Taste sense altered 802018079 Active 2023 FORREST GRANT MD 100 [facility],[place] [address], [place], [address] , [place] - [facility] 4 08:43:30 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 Procedures Surgical History Date Name Laterality Status Provider Name and Address Organization Details Recorded Time 01/24/2025 FFL_RE completed FORREST GRANT MD [address] [place] [address],[address], [address], [facility] - [facility] [place] 01/24/2025 15:20:19 08/31/2024 FFL_RE completed FORREST GRANT MD [address] [place] [address],[address], [address], [facility] - [facility] 08/31/2024 12:02:00 05/17/2024 FFL_RE completed FORREST GRANT MD [address] [place] [address], [address], [facility] - [facility] [place] 05/17/2024 08:40:20 01/12/2024 FFL_RE completed FORREST GRANT MD [address] [place] [address],[address], [address], [facility] - [facility] 01/12/2024 12:10:25 Imaging Results None recorded. Procedure Notes None recorded. Medical Equipment None Reported. Medications Name Sig Start Date Stop Date Status Note LastModified by Organization Details LastModified Time amoxicillin 500 mg capsule TAKE 1 CAPSULE BY MOUTH THREE TIMES A DAY active Not Available Not Available No t Available fluconazole 100 mg tablet TAKE 2 [...] Not Available Not Available No t Available prochlorper azine maleate 5 mg tablet TAKE 1 TABLET BY MOUTH EVERY 6 HOURS NEEDED FOR NAUSEA AND VOMITING active Not Available Not Available No t Available ondansetron HCl 8 mg tablet TAKE 1 TABLET BY MOUTH 2 TIMES A DAY NEEDED NAUSEA & VOMITING active Not Available Not Available No t Available fluconazole 200 mg tablet TAKE 2 TABLETS BY MOUTH ON DAY 1, THEN 1 TAB DAILY FOR 13 DAYS active Not Available Not Available No t Available meloxicam 15 mg tablet TAKE 1 TABLET BY MOUTH ONCE A DAY WITH FOOD OR MILK active Not Available Not Available No t Available fluorouraci l 5 % topical cream PLEASE SEE ATTACHED FOR DETAILED DIRECTION S active Not Available Not Available No t Available amlodipine 5 mg tablet TAKE 1 TABLET BY MOUTH EVERY DAY active Not Available Not Available No t Available valacyclovi r 500 mg tablet TAKE 1 TABLET BY MOUTH TWICE A DAY active Not Available Not Available No t Available olanzapine 2.5 mg tablet TAKE 1 TABLET BY MOUTH EVERYDAY AT BEDTIME active Not Available Not Available No t Available acetaminoph en 500 mg tablet TAKE 1 TABLET EVERY 6 HOURS NEEDED FOR PAIN active Not Available Not Available No t Available lidocaine-p rilocaine 2.5 %-2.5 % topical cream APPLY SMALL DOLLOP TO [facility] SITE 1 HR PRIOR TO APPT AND COVER WITH PLASTIC active Not Available Not Available No t Available lorazepam 0.5 mg tablet TAKE 0.5 TABLET BY MOUTH ONCE NEEDED FOR ANXIETY, TAKE 30-60 MIN PRIOR TO NUCLEAR TESTING. active Not Available Not Available No t Available metoclopram daniel 5 mg tablet TAKE 1 TABLET BY MOUTH 3 TIMES A DAY 1 HOUR BEFORE G-TUBE FEEDING STOP PROCHLORP ERAZINE WHILE ON MED active Not Available Not Available No t Available cephalexin 500 mg capsule TAKE 1 CAPSULE BY MOUTH 3 TIMES A DAY FOR 7 DAYS active Not Available Not Available No t Available omeprazole 20 mg capsule,del ayed release TAKE 1 CAPSULE BY MOUTH EVERY DAY ON EMPTY STOMACH AND DO NOT EAT FOR 1 HOUR active Not Available Not Available No t Available mirtazapine 15 mg tablet TAKE 1 TABLET BY MOUTH EVERYDAY AT BEDTIME active Not Available Not Available No t Available carbidopa 25 mg-levodopa 100 mg tablet TAKE 1/2 TABLET 3 TIMES A DAY BEFORE MEALS FOR 1 WEEK THEN INCREASE TO 1 FULL TAB 3 TIMES THERAFTER active Not Available Not Available No t Available oxycodone 5 mg tablet TAKE 1 AND 1/2 TO 2 TABLETS BY MOUTH EVERY 6 HOURS NEEDED FOR PAIN active Not Available Not Available No t Available neomycin 3.5 mg/g-polymy karla B 10,000 unit/g-dexa meth 0.1 % eye oint APPLY TO THE UPPER EYELID OF THE RIGHT EYE AT BEDTIME FOR 2 WEEKS THEN STOP 01/21 completed Not Available Not Available Not Available mirtazapine 7.5 mg tablet PLEASE SEE ATTACHED FOR DETAILED DIRECTION S active Not Available Not Available No t Available rasagiline 0.5 mg tablet active Not Available Not Available Not Available Vitals Date Recorded Body height Body mass index (BMI) Body weight Provider Name and Address Organization Details Last Updated DateTime 08/31/2024 154.94 cm 22.7 kg/m2 55343.08 g Patito Lazo [place] [facility] 08/31/2024 11:58:06 Date Recorded Body height Body mass index (BMI) Body weight Provider Name and Address Organization Details Last Updated DateTime 01/12/2024 154.94 cm 24.6 kg/m2 85196.01 g Patito Lazo [facility] 01/12/2024 11:43:56 Date Recorded Body height Body mass index (BMI) Body weight Provider Name and Address Organization Details Last Updated DateTime 01/24/2025 154.94 cm 22.7 kg/m2 41707.08 g Patito Lazo [place] [facility] 01/24/2025 15:05:25 Social History None recorded. Functional Status None recorded. Mental Status None recorded. Family History Nothing Reported. Medical History No medical history recorded. Gynecological HistoryNo gynecological history recorded. Obstetrics History GPAL:G 0 P 0 0 0 0 Past Encounters Encounter ID Performer Location Encounter Start Date Encounter Closed Date Diagnosis/Indication Diagnosis SNOMED-CT Code Diagnosis ICD10 Code Diagnosis IMO Codes Diagnosis Note [id number] FORREST GRANT MD [facility] [address] [address] 01/12/2024 11:27:58 01/12/2024 12:25:53 History of malignant neoplasm of oropharynx [id number] 1007387 Z85.818 Exam and Laryngosco py showed no evidence of disease. We will continue routine surveillan ce. Discussed voice therapy but she deferred for now. Screening for malignant neoplasm of respiratory tract 747933296 Z12.2 Exam and Laryngosco py showed no evidence of disease. We will continue routine surveillan ce. [id number] FORREST GRANT MD [facility] [address] [address] 05/17/2024 08:20:39 05/17/2024 11:53:03 History of malignant neoplasm of oropharynx [id number] 8693297 Z85.818 Exam and Laryngosco py showed no evidence of disease. We will continue routine surveillan ce. Discussed voice therapy but she deferred for now. Screening for malignant neoplasm of respiratory tract 262729811 Z12.2 Exam and Laryngosco py showed no evidence of disease. We will continue routine surveillan ce. 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 Encouraged hydration. Taste sense altered 2718 68095 R43.2 Gave reasurance I expect some additional improvemen t over time. [id number] FORREST GRANT MD [facility] [address] [address] 08/31/2024 11:41:40 08/31/2024 12:08:22 History of malignant neoplasm of oropharynx 7803314467 4265228 Z85.818 Exam and Laryngosco py showed no evidence of disease. We will continue routine surveillan ce. Discussed voice therapy but she deferred for now. Screening for malignant neoplasm of respiratory tract 044397000 Z12.2 Exam and Laryngosco py showed no evidence of disease. We will continue routine surveillan ce. I gave reassuranc e what she was feeling in her neck was her right submandibu lar gland which felt normal and fairly symmetric. 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 Encouraged hydration. Taste sense altered 2718 87664 R43.2 Gave reassuranc e I expect some additional improvemen t over time. [id number] FORREST GRANT MD [facility] [address] [place] [address] 01/24/2025 14:52:16 01/24/2025 15:31:13 History of malignant neoplasm of oropharynx 0773702779 5591369 Z85.818 Exam and Laryngosco py showed no evidence of disease. We will continue routine surveillan ce. Screening for malignant neoplasm of respiratory tract 356857418 Z12.2 Exam and Laryngosco py showed no evidence of disease. We will continue routine surveillan ce. I gave reassuranc e what she was feeling in her neck was her right submandibu lar gland which felt normal and fairly symmetric. 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 Encouraged hydration. Health Concerns Section Related Observation LastModified by Organization Detai ls LastModified Time None Recorded Concern Status LastModified by Organization Details LastModified Time None Recorded Advance Directives Directive None Recorded Payers Insurance Date Sequence Insurance Name Policy Number Policy Reynaga Covered Member ID Reynaga Member ID Guarantor Name 08/31/2024 2 [id number] Catia Perez 01/24/2025 2 [place] [id number] Catia Perez [id number] Catia Perez 01/24/2025 1 [place] [employer] Catia Perez [id number] Catia Perez Notes Date Note Type Note Provider Name and Address Organization Details Recorded Time 01/12/2024 text/html ROS as noted in the HPI 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 Her swallowing has improved. Has a PET Thursday. Has low energy. Has had her thyroid hormone level checked. 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 Post tx PET 01/2024 without residual disease. Her swallowing has improved. No pain. Supplementing calorie intake with Boost. Dr. Land checks thyroid hormone levels. No SOB. She was diagnosed with Parkinsons. 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 Post tx PET 01/2024 without residual disease. Her swallowing has improved. She coughs very occasionally with swallowing. No pain. Dr. Land checks thyroid hormone levels. She was diagnosed with Parkinsons. She noted a swollen gland in her right neck and she's not sure if it's new or not. 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 Post tx PET 01/2024 without residual disease. Her swallowing has improved. No pain. Dr. Land checks thyroid hormone levels. She was diagnosed with Parkinsons. She has felt some fatigue in the last few days but in general she feels ok. FORREST GRANT MD [address] [facility],[address], [address], [place] [facility] 01/24/2025 15:35:47 OBGyn Episode No OBEpisode recorded.
== END 2025-04-07 13:50 | disposition home or self-care (01) ==
LOC: HO.HSMS 12:56
PROVIDERS: PCP Internal Medicine; Visit Provider Psychiatry & Neurology Neurology
DX: G20.A1 Parkinson's disease without dyskinesia, without mention of fluctuations (principal)
CPT/HCPCS: 99214; G2211

== ENCOUNTER → 2025-04-07 12:55 | Outpatient (BNVA) | payer MEDICARE, SELFPAY | PROVIDERS: PCP Internal Medicine; Visit Provider Psychiatry & Neurology Neurology | DX: G20.A1 Parkinson's disease without dyskinesia, without mention of fluctuations (principal) | CPT/HCPCS: 99212 ==